=== PATIENT | female | born 1995 | race Two or more races ===

== ENCOUNTER 2020-08-27 06:00 | Day surgery (SDC) | payer OTHER ==
[2020-08-27] MEDS ORDERED: COLACE100 MG PO (13:13)
[2020-08-27] MEDS ORDERED: ULTRACET PO (13:13)
[2020-08-27] MEDS ORDERED: NAPR500T14 PO (13:14)
== END 2020-08-27 15:20 | disposition home or self-care (01) ==
LOC: CIR.AMB 06:00
PROVIDERS: ATTEND Obstetrics & Gynecology
DX: D27.0 Benign neoplasm of right ovary (principal); Z20.828 Contact with and (suspected) exposure to other viral communicable diseases